=== PATIENT | female | born 1990 | race Two or more races ===

== ENCOUNTER 2023-03-12 02:14 | Emergency (ER) | payer MEDICAID, OTHER ==
[~2023-03-12] VITALS: Ht 157.5 cm; Wt 62.0 kg
[2023-03-12 09:33] VITALS: BP 108/72; PULSE 95; RESP 18; TEMP 89; O2SAT 97
[2023-03-12 09:42] LABS: Urine Bacteria MOD /hpf (None Seen); Urine Blood 2+ /uL (Negative); Urine Mucus FEW (None Seen); Urine Specific Gravity 1.023 (1.001-1.035); Urine WBC 110 /hpf (0 - 5)
[2023-03-12] MEDS ORDERED: ACETAMINOPHEN 500 MG TAB PO ONE (10:30)
[2023-03-12] MEDS: ONDANSETRON ODT 4 MG TAB PO ONE ×2 (10:44→12:02)
[2023-03-12] MEDS: SODIUM CHLORIDE 0.9% 1,000 ML IV ONE ×2 (10:44→12:01)
[2023-03-12] MEDS: cefTRIAXone SOD 1,000 MG VL IM ONE ×2 (10:45→12:02)
[2023-03-12] MEDS ORDERED: CEPH500T PO ×3 (16:38→17:57)
[2023-03-12] MEDS ORDERED: ACET-1079 PO ×3 (16:38→17:57)
== END 2023-03-12 12:13 | disposition left against medical advice (07) ==
LOC: ER 02:18
DX: R10.9 Unspecified abdominal pain (principal); R30.0 Dysuria; Z53.21 Procedure and treatment not carried out due to patient leaving prior to being seen by health care provider
CPT/HCPCS: 74176; 81001; 81025; 87086; 99284; J0696; Q0162